=== PATIENT | female | born 1970 | race African-American/Black ===

== ENCOUNTER 2022-09-10 00:03 | Emergency (ER) | payer MEDICAID, SELFPAY ==
--- NOTE | ~2022-09-10 | XR_ITS ---
EXAMINATION: XR CHEST CLINICAL INFORMATION: Pain COMPARISON: None TECHNIQUE: Frontal view of the chest was obtained. FINDINGS: The lungs are clear with no focal consolidation. No evidence of pneumothorax, pulmonary edema, or pleural effusions. The cardiomediastinal silhouette is unremarkable. No acute osseous findings. XR/XR chest 1V IMPRESSION: No acute cardiopulmonary findings.
[2022-09-10 00:25] VITALS: BP 184/118; PULSE 80; RESP 20; TEMP 36.5; O2SAT 100; BMI 36.6
--- NOTE | 2022-09-10 00:25 | ECG_ITS ---
Test Reason : chest pain Blood Pressure : / mmHG Vent. Rate : 070 BPM Atrial Rate : 070 BPM P-R Int : 158 ms QRS Dur : 074 ms QT Int : 410 ms P-R-T Axes : 057 014 017 degrees QTc Int : 442 ms Normal sinus rhythm with sinus arrhythmia Normal ECG No previous ECGs available Referred By: Generic ED Physician Electronically Signed By:LEILANI VANG MD
[2022-09-10 00:35] LABS: MANUAL DIFF FLAG NO
[2022-09-10 00:36] LABS: Basophils Percent Auto 0.3 % (0-2); Eosinophils Absolute Auto 0.5 X10*3/uL (0.0-0.4); Eosinophils Percent Auto 4.3 % (0-4); Imm Gran Abs Auto 0.02 X10*3/uL (0.00-0.03); Imm Gran Pct Auto 0.2 % (0.0-0.4); Lymphocytes Absolute Auto 3.6 X10*3/uL (1.2-4.9); Lymphocytes Percent Auto 33.2 % (20-40); Mean Corpuscular HGB Conc 30.4 g/dl (31.0-35.0); Mean Corpuscular Hemoglobin 25.8 pg (27.0-33.0); Mean Corpuscular Volume 84.7 fL (80.0-98.0); Mean Platelet Volume 9.6 fL (9.4-12.3); Monocytes Absolute Auto 0.6 X10*3/uL (0.1-1.2); Monocytes Percent Auto 5.3 % (2-11); Neutrophils Absolute Auto 6.2 x10*3/uL (2.0-8.3); Neutrophils Percent Auto 56.7 % (45-73); Platelet Count 298 X10*3/uL (160-400); Red Blood Count 5.43 X10*6/uL (4.20-5.50); White Blood Count 10.8 X10*3/uL (4.8-10.8)
[2022-09-10 00:55] LABS: Alanine Aminotransferase 14 U/L (0-31); Albumin Level 4.1 g/dL (3.5-5.0); Alkaline Phosphatase 56 U/L (39-117); Anion Gap 14 (12-20); Aspartate Amino Transferase 17 U/L (5-31); Bilirubin Total 0.2 mg/dL (0.0-1.0); Blood Urea Nitrogen 15 mg/dL (9-16); Calcium 9.1 mg/dL (8.4-10.2); Carbon Dioxide 25 mmol/L (22-29); Chloride 107 mmol/L (96-108); Creatinine Clr Calc Pharmacy 59.9; Estimated Glomerular Filt Rate 50; Glucose Random 95 mg/dL (60-115); Potassium 4.1 mmol/L (3.3-5.1); Sodium 142 mmol/L (135-145); Total Protein 7.3 g/dL (6.5-8.0)
[2022-09-10 01:00] LABS: Troponin-I High Sensitivity < 3.5 ng/L (<3.5-17.0)
--- NOTE | 2022-09-10 01:00 | PC.NURSE ---
patient placed on court monitor. warm blanket provided. at the bedside
[2022-09-10 01:52] VITALS: BP 161/96; PULSE 64; RESP 15; TEMP 36.6; O2SAT 96
[2022-09-10 04:00] VITALS: BP 137/68; PULSE 73; RESP 16; TEMP 36.5; O2SAT 99
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
[2022-09-10 05:51] VITALS: BP 140/83; PULSE 82; RESP 16; TEMP 36.7; O2SAT 98
== END 2022-09-10 06:58 | disposition home or self-care (01) ==
PROVIDERS: Emergency Provider Emergency Medicine
DX: R07.89 Other chest pain (principal); F41.9 Anxiety disorder, unspecified; F43.0 Acute stress reaction; G89.4 Chronic pain syndrome
CPT/HCPCS: 36415; 71045; 80053; 84484; 85025; 93005; 99283; 99284

== ENCOUNTER 2024-11-02 05:48 | Emergency (ER) | payer MEDICAID, SELFPAY ==
--- NOTE | ~2024-11-02 | XR_ITS ---
EXAMINATION: XR CHEST CLINICAL INFORMATION: Cough, CP COMPARISON: September 10, 2022 TECHNIQUE: 2 views of the chest were obtained. FINDINGS: No significant abnormality is noted involving the heart, lungs, mediastinum, bony thorax or soft tissues. XR/XR chest 2V IMPRESSION: Unremarkable examination. Electronically signed by: José Soares MD 11/02/2024 06:45 AM [facility]
--- NOTE | ~2024-11-02 | CT_ITS ---
EXAMINATION: CT ANGIOGRAM CHEST CLINICAL INFORMATION: Dyspnea, elevated d-dimer, chest pain COMPARISON: No prior CT. Chest x-ray dated earlier same day. TECHNIQUE: Multiple axial images were obtained through the chest after the administration of 65 mL of Omnipaque 350 intravenous contrast. Examination performed in CTPA protocol. Extensive vascular post-processing including two-dimensional and three-dimensional reformatted images were created and reviewed on an independent workstation. This CT examination was performed using dose optimization techniques as appropriate, variously including the following: *Automated exposure control *Adjustment of mA and/or kV according to patient size (this includes techniques or standardized protocols for targeted exams where dose is matched to indication/reason for exam; i.e. extremities or head) *Use of iterative reconstruction technique DLP: 413 mGy-cm FINDINGS: LUNGS: -There is mild paraseptal emphysema, upper lung predominant. -There is a patchy consolidative opacity, subsegmental, left upper lobe distribution posterior segment. Findings are suspect for bronchopneumonia. This can also be noted on the chest x-ray earlier same day. There are subtle calcifications contained within, suggesting this may be also sequela of prior granulomatous disease. -There is subtle groundglass peribronchial opacity in the inferior right upper lobe. -Lungs otherwise clear. No effusions or pneumothorax. -Small airways appear normal without thickening. -No evidence of interstitial lung disease. -No suspicious nodules. PLEURA: There is no pleural effusion. No pleural mass or thickening. MEDIASTINUM: -Heart size is t top normal. No pericardial effusion. -No lesions in the thyroid by CT. -No masses or lymphadenopathy. -Esophagus is unremarkable. VASCULAR: -There is no evidence of pulmonary embolism. Study quality is satisfactory. Main pulmonary artery is normal in size. There is mild motion limitation, and beam starvation from patient body habitus. -There is no evidence acute aortic syndrome or aneurysm. Aorta is normal in caliber and contour. Great vessels appear normal. AXILLA/CHEST WALL: No masses or lymphadenopathy. UPPER ABDOMEN: 2 -Low-attenuation bilateral adrenal lesions are present, a bilobed lesion with calcification in the left adrenal measures up to 3.4 cm in diameter, and measures 5 Hounsfield units. Slightly more posteriorly, the second lobe of the lesion measures 1.9 cm in diameter. This measures Hounsfield units of 4. -On the right, there is a small 1.4 cm low-attenuation adrenal adenoma. OSSEOUS STRUCTURES: No suspicious lytic or blastic bone lesions. No acute findings. There are degenerative spinal changes most notable inferior thoracic spine. CT/CT angio chest PE protocol IMPRESSION: 1. No evidence of pulmonary embolic disease, or evidence of acute aortic syndrome. 2. Subsegmental consolidative opacity LEFT upper lobe suspect for bronchopneumonia. This was also present on the chest x-ray of earlier same day. In addition, groundglass peribronchial opacities in the inferior RIGHT upper lobe, likely same etiology. 3. No effusions or complications. 4. Bilateral adrenal adenomas. Electronically signed by: Jaylon Hankisn MD 11/02/2024 11:40 AM [facility] [place]
--- NOTE | 2024-11-02 05:51 | ECG_ITS ---
Test Reason : CP Blood Pressure : / mmHG Vent. Rate : 101 BPM Atrial Rate : 101 BPM P-R Int : 140 ms QRS Dur : 084 ms QT Int : 358 ms P-R-T Axes : 064 016 018 degrees QTc Int : 464 ms Sinus tachycardia Cannot rule out Anterior infarct , age undetermined Abnormal ECG When compared with ECG of 10-SEP-2022 00:11, Nonspecific T wave abnormality now evident in Anterior leads Referred By: Generic ED Physician Electronically Signed By:Michael Cobos
[2024-11-02 06:00] VITALS: BP 151/97; PULSE 104; RESP 16; TEMP 36.7; O2SAT 100; BMI 39.0
[2024-11-02 06:36] LABS: MANUAL DIFF FLAG NO
[2024-11-02 06:37] LABS: Basophils Percent Auto 0.2 % (0-2); Eosinophils Absolute Auto 0.3 X10*3/uL (0.0-0.4); Eosinophils Percent Auto 2.8 % (0-4); Hematocrit 45.6 % (37.0-47.0); Hemoglobin 14.3 g/dl (12.0-16.0); Imm Gran Abs Auto 0.03 X10*3/uL (0.00-0.03); Imm Gran Pct Auto 0.3 % (0.0-0.4); Lymphocytes Absolute Auto 2.4 X10*3/uL (1.2-4.9); Lymphocytes Percent Auto 23.9 % (20-40); Mean Corpuscular HGB Conc 31.4 g/dl (31.0-35.0); Mean Corpuscular Hemoglobin 25.6 pg (27.0-33.0); Mean Corpuscular Volume 81.6 fL (80.0-98.0); Mean Platelet Volume 9.7 fL (9.4-12.3); Monocytes Absolute Auto 0.5 X10*3/uL (0.1-1.2); Monocytes Percent Auto 5.1 % (2-11); Neutrophils Absolute Auto 6.7 x10*3/uL (2.0-8.3); Neutrophils Percent Auto 67.7 % (45-73); Platelet Count 236 X10*3/uL (160-400); Red Blood Count 5.59 X10*6/uL (4.20-5.50); Red Cell Distribution Width 14.2 % (11.0-16.0); White Blood Count 9.9 X10*3/uL (4.8-10.8)
[2024-11-02 06:53] LABS: Alanine Aminotransferase 20 U/L (0-31); Albumin Level 4.1 g/dL (3.5-5.0); Alkaline Phosphatase 68 U/L (39-117); Anion Gap 12 (12-20); Aspartate Amino Transferase 34 U/L (5-31); Bilirubin Total 0.2 mg/dL (0.0-1.0); Blood Urea Nitrogen 9 mg/dL (9-16); Carbon Dioxide 24 mmol/L (22-29); Chloride 110 mmol/L (96-108); Creatinine Clr Calc Pharmacy 86.2; Estimated Glomerular Filt Rate > 60; Glucose Random 115 mg/dL (60-115); Potassium 3.6 mmol/L (3.3-5.1); Sodium 142 mmol/L (135-145); Total Protein 7.6 g/dL (6.5-8.0)
[2024-11-02 07:00] LABS: Troponin-I High Sensitivity < 2.7 ng/L (<3.5-17.0)
--- NOTE | 2024-11-02 07:02 | ED_ITS ---
HPI - Chest Pain General Chief Complaint: Chest Pain Stated Complaint: Chest Pain & Throwing up blood Time Seen by Provider: 11/02/24 06:31 Source: patient, RN notes reviewed and old records reviewed Mode of arrival: ambulatory History of Present Illness ED Provider: Amada Hernández PA-C HPI narrative: 34-year-old female with a past medical history of anxiety, chronic back pain, tuberculosis (treated) presenting to the ED complaining substernal pain x 2 weeks with associated nausea and SOB. States daily gargles with mouthwash/coughs and this morning had 1 episode of blood mixed in phlegm. States blood was dark red. Denies fever, chills, pedal edema, recent travel, abdominal pain, nausea, vomiting, diarrhea, bloody stools, melena. Denies anticoagulation use Related Data Previous Rx's ?Medication ?Instructions ?Recorded alprazolam 2 mg tablet (Xanax) 2 mg PO BID PRN anxiety 3 days #6 09/10/22 tabs hydrocodone 10 mg-acetaminophen 1 tab PO BID PRN pain 3 days #6 09/10/22 325 mg tablet tabs Allergies Allergy/AdvReac Type Severity Reaction Status Date / Time morphine Allergy Unknown Unknown Verified 11/02/24 06:03 oxycodone Allergy Unknown Unknown Verified 11/02/24 06:03 Review of Systems 2 Review of Systems: Yes all other systems are reviewed and are negative Constitutional: Constitutional: Reports as per [facility] Past Medical History Attestation statement: The following information was validated with the patient. Source: old records reviewed Medical History Anxiety Chronic back pain Tuberculosis, treated Social History Social History Patient Tobacco Use Status: Never used Tobacco Advance Directives: Yes Advance Directives Information Provided: No Advance Directives on File: No Physical Exam 2 Vital Signs: Vital Signs: Last Vital Signs Temp 98.1 F 11/02/24 06:00 Pulse 104 H 11/02/24 06:00 Resp 16 11/02/24 06:00 BP 151/97 H 11/02/24 06:00 Pulse Ox 100 11/02/24 06:00 O2 Del Method Room Air 11/02/24 06:00 BMI result Body Mass Index 39.0 Const: General: cooperative, healthy appearing and no acute distress O rientation/consciousness: patient oriented x3 Limitations: no limitations HEENT: Head: Yes normal to inspection and Yes atraumatic Ears: hearing grossly normal bilaterally General nose exam: Normal external nose present Face and sinus: Yes normal facial exam Mouth: Normal oral and palatal mucosa present and no drooling Throat: Yes posterior oropharynx normal Eyes: General: appearance normal, both eyes and all related structures EOM: EOMs intact bilaterally Neck: Neck: Yes normal visual inspection and Yes no meningeal signs Chest: Chest palpation & inspection: normal inspection of the chest and no crepitus Resp: Effort & Inspection: normal respiratory effort, no respiratory distress and no stridor Auscultation: clear to auscultation bilaterally, no crackles, no rhonchi and no wheezes Cardio: Rate: regular rate Heart sounds: S1 normal heart sound present and S2 normal heart sound present GI: Inspection: Yes normal to inspection Palpation (GI): Soft to palpation, nontender, no guarding and not rigid Skin: Rashes: no rashes Wounds: no wounds Neuro: General: patient oriented x3, tone normal and no meningeal signs C ranial nerves: Yes CN's II-XII intact bilaterally Gait exam (Neuro): Normal gait present Extrem: General: Yes normal to inspection, Yes no pedal edema and Yes no calf tenderness Course Course Course Narrative: -190--no leukocytosis. Troponin negative. Labs otherwise reassuring. -viral studies negative -0829--D-dimer elevated to 357 > will obtain CTA to rule out PE XR chest 2V IMPRESSION: Unremarkable examination. 1148--CT angio chest PE protocol IMPRESSION: 1. No evidence of pulmonary embolic disease, or evidence of acute aortic syndrome. 2. Subsegmental consolidative opacity LEFT upper lobe suspect for bronchopneumonia. This was also present on the chest x-ray of earlier same day. In addition, groundglass peribronchial opacities in the inferior RIGHT upper lobe, likely same etiology. 3. No effusions or complications. 4. Bilateral adrenal adenomas. > will treat for multifocal pneumonia and recommend close PCP follow-up. First dose of Augmentin and azithromycin given in the ED. -patient also concerned about being out of her medications which include hydrocodone/acetaminophen and Xanax. States her prescriber is in [place] and due to her illness has been unable to go to them. Nothing on [facility] review. Patient did present to ED with her empty bottles. Had 2 mg of Xanax, 60 tablets filled on 09/25/24 (take 1 tablet b.i.d.) & 60 tabs of hydrocodone/APAP 10-325mg (1 tab b.i.d.) filled on 09/22/24 --filled in the [place], [place] > agreeable to fill 3 day supply for patient Results discussed with patient including worrisome signs and symptoms and strict return precautions, and when to return to the emergency department. They verbalized understanding and feel safe for discharge at this time. Medications Administered Discontinued Medications Generic Name Dose Route Start Last Admin Trade Name He PRN Reason Stop Dose Admin Hydrocodone Bitart/Acetaminophen 1 tab 11/02/24 10:37 11/02/24 11:02 Hydrocodone Bit/Acetam 5/325 Tablet PO 11/02/24 10:38 1 tab ONCE ONE Administration Iohexol 100 ml 11/02/24 11:15 11/02/24 11:15 Iohexol 350 Mg/Ml 100 Ml Infus..Btl IV 11/02/24 11:16 65 ml ONCE ONE Administration Medical Decision Making Medical Decision Making [facility] Narrative: 34-year-old female with a past medical history of anxiety, chronic back pain, tuberculosis (treated) presenting to the ED complaining substernal pain x 2 weeks with associated nausea and SOB & 1 episode of blood mixed in phlegm this morning. On exam initially tachycardic, NAD, nontoxic appearing, chest pain not reproducible, lungs CTA, abdomen soft/nontender. No pedal edema. Concern for viral illness vs bronchitis vs pneumonia. PE on differential. Lower suspicion for acute ACS/DVT or active TB. Lower suspicion for PUD/GI bleed. Rule out anemia Plan: EKG, labs, CXR, viral studies, UA, re-evaluate Please refer to course for remaining clinical decision making, interpretation of labs/imaging results, and discussions with consultants and/or family members. Differential Diagnosis Differential Diagnoses: The differential diagnosis associated with the presentation includes As above Admission/Observation Consideration of admission/observation: Escalation of care including admission/observation considered Lab Data [facility] Lab Attestation statement: I reviewed the patient's lab results. 11/02/24 06:32 12/26/24 06:32 Labs: Lab Results 11/02/24 11/02/24 11/02/24 Range/Units 06:32 07:18 07:19 WBC 9.9 (4.8-10.8) X10*3/uL RBC 5.59 H (4.20-5.50) X10*6/uL Hgb 14.3 (12.0-16.0) g/dl Hct 45.6 (37.0-47.0) % MCV 81.6 (80.0-98.0) fL MCH 25.6 L (27.0-33.0) pg MCHC 31.4 (31.0-35.0) g/dl RDW 14.2 (11.0-16.0) % Plt Count 236 (160-400) X10*3/uL MPV 9.7 (9.4-12.3) fL Immature Gran % (Auto) 0.3 (0.0-0.4) % Neut % (Auto) 67.7 (45-73) % Lymph % (Auto) 23.9 (20-40) % [place] % (Auto) 5.1 (2-11) % Eos % (Auto) 2.8 (0-4) % Baso % (Auto) 0.2 (0-2) % Lymph # (Auto) 2.4 (1.2-4.9) X10*3/uL [place] # (Auto) 0.5 (0.1-1.2) X10*3/uL Eos # (Auto) 0.3 (0.0-0.4) X10*3/uL Baso # (Auto) 0.0 (0.0-0.2) X10*3/uL Abs Immat Gran (auto) 0.03 (0.00-0.03) X10*3/uL Absolute Neuts (auto) 6.7 (2.0-8.3) x10*3/uL Absolute Nucleated RBC 0.000 (0.0-0.012) X10*3/uL Nucleated RBC % (auto) 0.0 (0.0-0.2) /100WBC PT 11.2 (10.9-12.4) SEC INR 1.0 (0.9-1.1) D-Dimer High Sensitivty 357 Cancelled NG/ML Sodium 142 (135-145) mmol/L Potassium 3.6 (3.3-5.1) mmol/L Chloride 110 H (96-108) mmol/L Carbon Dioxide 24 (22-29) mmol/L Anion Gap 12 (12-20) BUN 9 (9-16) mg/dL Creatinine 0.84 (0.5-1.4) mg/dL Estim Creat Clear Calc 86.2 Estimated GFR > 60 Random Glucose 115 (60-115) mg/dL Calcium 9.0 (8.4-10.2) mg/dL Total Bilirubin 0.2 (0.0-1.0) mg/dL AST 34 H (5-31) U/L ALT 20 (0-31) U/L Alkaline Phosphatase 68 (39-117) U/L Troponin I High Sens < 2.7 (<3.5-17.0) ng/L Total Protein 7.6 (6.5-8.0) g/dL Albumin 4.1 (3.5-5.0) g/dL Lipase 19 (8-78) U/L Urine Color Urine Appearance Urine pH (5.0-9.0) Ur Specific [place] (1.005-1.025) Urine Protein (Neg-Trace) mg/dL Urine Glucose (UA) (Negative) mg/dL Urine Ketones (Negative) mg/dL Urine Blood (Negative) Urine Nitrite (Negative) Ur Leukocyte Esterase (Negative) Urine RBC (0-2) /HPF Urine WBC (0-5) /HPF Ur Squamous Epith Cells (0-2) /HPF Urine Bacteria (None Seen) Hyaline Casts (0-2) /LPF Influenza Type A (PCR) NEGATIVE (Negative) Influenza Type B (PCR) NEGATIVE (Negative) RSV RNA Qual (PCR) NEGATIVE (Negative) SARS-CoV-2 RNA (RT-PCR) NEGATIVE (Negative) 11/02/24 Range/Units 09:28 WBC (4.8-10.8) X10*3/uL RBC (4.20-5.50) X10*6/uL Hgb (12.0-16.0) g/dl Hct (37.0-47.0) % MCV (80.0-98.0) fL MCH (27.0-33.0) pg MCHC (31.0-35.0) g/dl RDW (11.0-16.0) % Plt Count (160-400) X10*3/uL MPV (9.4-12.3) fL Immature Gran % (Auto) (0.0-0.4) % Neut % (Auto) (45-73) % Lymph % (Auto) (20-40) % [place] % (Auto) (2-11) % Eos % (Auto) (0-4) % Baso % (Auto) (0-2) % Lymph # (Auto) (1.2-4.9) X10*3/uL [place] # (Auto) (0.1-1.2) X10*3/uL Eos # (Auto) (0.0-0.4) X10*3/uL Baso # (Auto) (0.0-0.2) X10*3/uL Abs Immat Gran (auto) (0.00-0.03) X10*3/uL Absolute Neuts (auto) (2.0-8.3) x10*3/uL Absolute Nucleated RBC (0.0-0.012) X10*3/uL Nucleated RBC % (auto) (0.0-0.2) /100WBC PT (10.9-12.4) SEC INR (0.9-1.1) D-Dimer High Sensitivty NG/ML Sodium (135-145) mmol/L Potassium (3.3-5.1) mmol/L Chloride (96-108) mmol/L Carbon Dioxide (22-29) mmol/L Anion Gap (12-20) BUN (9-16) mg/dL Creatinine (0.5-1.4) mg/dL Estim Creat Clear Calc Estimated GFR Random Glucose (60-115) mg/dL Calcium (8.4-10.2) mg/dL Total Bilirubin (0.0-1.0) mg/dL AST (5-31) U/L ALT (0-31) U/L Alkaline Phosphatase (39-117) U/L Troponin I High Sens (<3.5-17.0) ng/L Total Protein (6.5-8.0) g/dL Albumin (3.5-5.0) g/dL Lipase (8-78) U/L Urine Color Yellow Urine Appearance Clear Urine pH 6.0 (5.0-9.0) Ur Specific [place] 1.010 (1.005-1.025) Urine Protein Negative (Neg-Trace) mg/dL Urine Glucose (UA) Negative (Negative) mg/dL Urine Ketones Negative (Negative) mg/dL Urine Blood Negative (Negative) Urine Nitrite Negative (Negative) Ur Leukocyte Esterase Small (1+) H (Negative) Urine RBC 0-2 (0-2) /HPF Urine WBC 0-5 (0-5) /HPF Ur Squamous Epith Cells 3-5 (0-2) /HPF Urine Bacteria Trace (None Seen) Hyaline Casts 0-2 (0-2) /LPF Influenza Type A (PCR) (Negative) Influenza Type B (PCR) (Negative) RSV RNA Qual (PCR) (Negative) SARS-CoV-2 RNA (RT-PCR) (Negative) Independent Interpretation I performed an independent interpretation of an: EKG (My interpretation EKG sinus tachycardia rate of 101. TN interval 140. QTC 464. Nonspecific T-wave abnormality no evident in anterior leads. No STEMI.) and Plain X-Ray Radiology Impression Discussion of test interpretation with radiology: I have reviewed the radiologist's reading. Independent Historian Clinical information obtained from an independent historian. History obtained from or confirmed by: Spouse External Record Review External record reviewed: Inpatient record, Office record, Outpatient record, Prior outpatient labs, Prior outpatient radiology, Primary care record and Outside ED record Tests considered The following testing was considered but not selected: As above Prescription Management I considered prescription management with: Pain Medication and Antibiotic Chronic Conditions Patient?s care impacted by: Other Social Determinants Patient?s care significantly limited by Social Determinants of Health including: Other Social Determinant of Health Discharge Plan Discharge Clinical Impression: Multifocal pneumonia, Bronchopneumonia Patient Disposition: Home, Self-Care Additional Instructions: CT angio chest PE protocol IMPRESSION: 1. No evidence of pulmonary embolic disease, or evidence of acute aortic syndrome. 2. Subsegmental consolidative opacity LEFT upper lobe suspect for bronchopneumonia. This was also present on the chest x-ray of earlier same day. In addition, groundglass peribronchial opacities in the inferior RIGHT upper lobe, likely same etiology. 3. No effusions or complications. 4. Bilateral adrenal adenomas. Please have close follow-up with your doctor. Present them with these reports and have your adrenal adenomas evaluated Prescriptions: No Action alprazolam [Xanax] 2 mg tablet 2 mg PO BID PRN (Reason: anxiety) 3 Days Qty: 6 0RF hydrocodone-acetaminophen 10-325 mg tablet 1 tab PO BID PRN (Reason: pain) 3 Days Qty: 6 0RF Rx Instructions: Partial Fill upon patient request. Print Language: Estonian
--- NOTE | 2024-11-02 07:22 | PC.NURSE ---
labs/swabs obtained/sent to lab. pt notified/aware that if d-dimer is elevated, she will need a CAT scan to rule out a PE. pt refused for this RN to place a line above the wrist. provider notified/aware.
[2024-11-02 07:31] LABS: Prothrombin Time 11.2 SEC (10.9-12.4)
[2024-11-02 07:49] LABS: Lipase 19 U/L (8-78)
[2024-11-02 08:05] LABS: Influenza A PCR NEGATIVE (Negative); Influenza B PCR NEGATIVE (Negative); Resp Syncy Virus RNA Qual PCR NEGATIVE (Negative); SARS COV2 PCR INHOUSE NEGATIVE (Negative)
[2024-11-02 08:26] LABS: D Dimer High Sensitivity 357 NG/ML
[2024-11-02 09:47] LABS: Appearance Urine Clear; Color Urine Yellow; Glucose Urine UA Negative (Negative); Leukocyte Esterase Urine Small (1+) (Negative); Nitrite Urine Negative (Negative); UMIC TRIGGER UACC YES; Urine Blood Negative (Negative); Urine Ketones Negative (Negative); Urine Protein Negative (Neg-Trace)
--- NOTE | 2024-11-02 09:51 | PC.NURSE ---
pt aware of elevated labs - attempted to place access but pt screamed at this RN to take it out. attempted to place an IV for a second time and once again, pt yelled at this RN and refused. another RN attempting to place a line at this time.
[2024-11-02 09:55] LABS: Bacteria Urine Trace (None Seen); Hyaline Casts Urine 0-2 /LPF (0-2); RBC Urine 0-2 /HPF (0-2); UACC Culture Trigger YES; WBC Urine 0-5 /HPF (0-5)
--- NOTE | 2024-11-02 10:07 | PC.NURSE ---
20G peripheral IV to RAC. Tolerated well. IV flushes without any difficulty or discomfort per pt.
[2024-11-02] MEDS: HYDROcodone Bit/Acetam 5/325 TABLET 1 TAB PO (11:02)
--- NOTE | 2024-11-02 11:05 | PC.NURSE ---
pt returned from CT at this time - medication administered per provider order. CT results pending at this time.
[2024-11-02] MEDS: iohexoL 350 MG/ML 100 ML INFUS..BTL IV (11:15)
[2024-11-02 12:08] VITALS: BP 152/98; PULSE 89; RESP 19; TEMP 36.6; O2SAT 96
[2024-11-02] MEDS: Azithromycin 500 MG TABLET PO (12:09)
[2024-11-02] MEDS: Amoxicillin/Potassium Clav 875 MG TABLET PO (12:09)
[2024-11-02] MEDS: ALPRAZolam 0.5 MG TABLET 2 MG PO (12:09)
[2024-11-02 12:12] VITALS: BP 152/98; PULSE 89; RESP 19; TEMP 36.6; O2SAT 96
--- NOTE | 2024-11-02 12:12 | PC.NURSE ---
abx administered per provider order.
== END 2024-11-02 12:31 | disposition home or self-care (01) ==
PROVIDERS: Physician Assistant; Emergency Provider Emergency Medicine
DX: J18.0 Bronchopneumonia, unspecified organism (principal); J18.8 Other pneumonia, unspecified organism; Z03.818 Encounter for observation for suspected exposure to other biological agents ruled out; R00.0 Tachycardia, unspecified; R05.9 Cough, unspecified; R07.9 Chest pain, unspecified
CPT/HCPCS: 0241U; 36415; 71046; 71275; 80053; 81001; 83690; 84484; 85025; 85379; 85610; 87086; 93005; 99284; Q9967

== ENCOUNTER → 2024-11-02 05:51 | Outpatient (BNV) | payer MEDICAID, SELFPAY | PROVIDERS: Emergency Provider Emergency Medicine; Visit Provider Internal Medicine Cardiovascular Disease | DX: R07.9 Chest pain, unspecified (principal); R94.31 Abnormal electrocardiogram [ECG] [EKG] | CPT/HCPCS: 93010 ==

== ENCOUNTER → 2024-11-02 08:29 | Outpatient (BNV) | payer MEDICAID, SELFPAY | PROVIDERS: Emergency Provider Emergency Medicine; Visit Provider Radiology Diagnostic Radiology | DX: J18.0 Bronchopneumonia, unspecified organism (principal); D35.01 Benign neoplasm of right adrenal gland; D35.02 Benign neoplasm of left adrenal gland | CPT/HCPCS: 71275 ==

== ENCOUNTER → 2024-11-16 06:45 | Outpatient (BNV) | payer MEDICAID, SELFPAY | PROVIDERS: Emergency Provider Emergency Medicine; Visit Provider Internal Medicine | DX: R07.9 Chest pain, unspecified (principal); R00.0 Tachycardia, unspecified | CPT/HCPCS: 93010 ==

== ENCOUNTER → 2024-11-16 07:35 | Outpatient (BNV) | payer MEDICAID, SELFPAY | PROVIDERS: Visit Provider Radiology Diagnostic Radiology | DX: R07.9 Chest pain, unspecified (principal); R05.9 Cough, unspecified | CPT/HCPCS: 71046; 71260 ==